=== PATIENT | female | born 1990 | race Hispanic/Latino ===

== ENCOUNTER 2021-01-13 13:40 | Emergency (ER) | payer BC, OTHER ==
[2021-01-13] MEDS ORDERED: SODIUM CHLORIDE 0.9% 1000 ML 1,000 ML IV ONE (13:51)
[2021-01-13] MEDS ORDERED: MORPHINE 2 MG/1 ML INJ IV ONE ×2 (13:51→13:52)
[2021-01-13] MEDS ORDERED: METOCLOPRAMIDE 10 MG/2 ML INJ IV ONE (13:52)
[2021-01-13 15:04] LABS: Basophils % (Auto) 0.5 % (0.0-1.8); Eosinophils % (Auto) 0.3 % (0.0-4.3); Hemoglobin 11.2 gm/dl (10.1-14.3); Lymphocytes # (Auto) 1.7 K/mm3 (1.2-5.4); Lymphocytes % (Auto) 30.4 % (13.4-35.0); Mean Corpuscular HGB Conc 33 % (30-34); Mean Corpuscular Volume 93 fl (79-97); Monocytes # (Auto) 0.5 K/mm3 (0.0-0.8); Monocytes % (Auto) 8.9 % (0.0-7.3); Platelet Count 218 K/mm3 (140-440); Red Blood Count 3.66 M/mm3 (3.65-5.03); Red Cell Distribution Width 13.1 % (13.2-15.2)
[2021-01-13 15:27] LABS: Alanine Aminotransferase 12 units/L (7-56); Albumin 4.4 g/dL (3.9-5); BUN/Creatinine Ratio 28; Blood Urea Nitrogen 14 mg/dL (7-17); Calcium 9.1 mg/dL (8.4-10.2); Hemolysis Index 14
--- NOTE | 2021-01-13 15:30 | Emergency Department Report ---
ED Female HPI - General Chief complaint: Urogenital-Female Stated complaint: SHARP CRAMPS Time Seen by Provider: 01/13/21 13:46 Source: patient Mode of arrival: Ambulatory Limitations: No Limitations - History of Present Illness Initial comments: This is a 31-year-old female nontoxic, well nourished in appearance, no acute signs of distress presents to the ED with c/o of acute on chronic intermittent pelvic pain x months. Patient stated was sent by her OBGYN for Ultrasound and pain control. Patient stated that she takes [place] for pain. Patient denies any vomiting. Patient describes pelvic pain as cramping and aching with level o f 8/10 diffuse. Denies any upper abdominal pains. Patient denies chest pain, short of breath, fever, hemoptysis, blood in stool, chills, headache, stiff neck, numbness or tingling. Patient denies any diarrhea or constipation. Patient denies any vaginal discharge. Denies any vaginal bleeding. Denies any blood in stool. Patient denies any recent travels. Patient stated allergies to codeine, zofran, and nitrofurantoin. MD Complaint: pelvic pain -: days(s) Radiation: non-radiating Severity: mild Severity scale (0 -10): 8 Quality: cramping Consistency: constant Improves with: none Worsens with: none Are you Now?: No Associated Symptoms: denies: vaginal discharge, vaginal bleeding, abdominal pain, nausea/vomiting, fever/chills, headaches, loss of appetite, dysuria, hematuria, rash, seizure, shortness of breath, syncope, weakness - Related Data Home Medications Medication Instructions Recorded Confirmed Last Taken Norgestimate-Ethinyl Estradiol 1 tab PO DAILY 12/12/16 12/14/16 12/12/16 [Sprintec 28 Day Tablet] Phentermine HCl 37.5 mg PO DAILY 12/12/16 12/12/16 12/05/16 Previous Rx's Medication Instructions Recorded Last Taken Type Ibuprofen [Motrin] 800 mg PO Q8HR PRN #40 tablet 12/14/16 Unknown Rx Oxycodone HCl/Acetaminophen 1 each PO Q6HR PRN #50 tablet 12/14/16 Unknown Rx [Percocet 7.5/325 mg] Promethazine [Phenergan TAB] 25 mg PO Q6HR PRN #40 tab 12/14/16 Unknown Rx cephALEXin [Keflex] 500 mg PO Q8HR #21 cap 01/13/21 Unknown Rx Allergies Allergy/AdvReac Type Severity Reaction Status Date / Time codeine Allergy Vomiting Verified 01/13/21 13:43 ondansetron Allergy Vomiting Verified 01/13/21 13:43 [From Zofran (as hydrochloride)] nitrofurantoin AdvReac Hives Verified 01/13/21 13:43 [From Macrobid] ED Review of Systems ROS: Stated complaint: SHARP CRAMPS Other details as noted in HPI Comment: All other systems reviewed and negative Constitutional: denies: chills, fever Eyes: denies: eye pain, eye discharge, vision change ENT: denies: ear pain, throat pain Respiratory: denies: cough, shortness of breath, wheezing Cardiovascular: denies: chest pain, palpitations Endocrine: no symptoms reported Gastrointestinal: denies: abdominal pain, nausea, diarrhea Genitourinary: denies: urgency, dysuria, discharge Musculoskeletal: denies: back pain, joint swelling, arthralgia Skin: denies: rash, lesions Neurological: denies: headache, weakness, paresthesias Psychiatric: denies: anxiety, depression Hematological/Lymphatic: denies: easy bleeding, easy bruising ED Past Medical Hx - Past Medical History Hx Hypertension: No Hx Headaches / Migraines: Yes (migraines) 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) - Social History Smoking Status: Former Smoker - Medications Home Medications: Home Medications Medication Instructions Recorded Confirmed Last Taken Type Norgestimate-Ethinyl Estradiol 1 tab PO DAILY 12/12/16 12/14/16 12/12/16 History [Sprintec 28 Day Tablet] Phentermine HCl 37.5 mg PO DAILY 12/12/16 12/12/16 12/05/16 History Ibuprofen [Motrin] 800 mg PO Q8HR PRN #40 tablet 12/14/16 Unknown Rx Oxycodone HCl/Acetaminophen 1 each PO Q6HR PRN #50 tablet 12/14/16 Unknown Rx [Percocet 7.5/325 mg] Promethazine [Phenergan TAB] 25 mg PO Q6HR PRN #40 tab 12/14/16 Unknown Rx cephALEXin [Keflex] 500 mg PO Q8HR #21 cap 01/13/21 Unknown Rx ED Physical Exam - General Limitations: No Limitations General appearance: alert, in no apparent distress - Head Head exam: Present: atraumatic, normocephalic - Eye Eye exam: Present: normal appearance - Neck Neck exam: Present: normal inspection, full ROM. Absent: lymphadenopathy - Respiratory Respiratory exam: Present: normal lung sounds bilaterally. Absent: respiratory distress, wheezes, rales, rhonchi, stridor, chest wall tenderness, accessory muscle use, decreased breath sounds, prolonged expiratory - Cardiovascular Cardiovascular Exam: Present: regular rate, normal rhythm, tachycardia, normal heart sounds. Absent: irregular rhythm, systolic murmur, diastolic murmur, rubs, gallop - GI/Abdominal GI/Abdominal exam: Present: soft, normal bowel sounds. Absent: distended, tenderness, guarding, rebound, rigid, diminished bowel sounds - Extremities Exam Extremities exam: Present: full ROM - Back Exam Back exam: Present: normal inspection, full ROM. Absent: tenderness, CVA tenderness (R), CVA tenderness (L), muscle spasm, paraspinal tenderness, vertebral tenderness, rash noted - Neurological Exam Neurological exam: Present: alert, oriented X3, normal gait - Psychiatric Psychiatric exam: Present: normal affect, normal mood - Skin Skin exam: Present: warm, dry, intact, normal color. Absent: rash ED Course Vital Signs 01/13/21 01/13/21 13:43 14:16 Temperature 98.1 F Pulse Rate 109 H Respiratory 18 16 Rate Blood Pressure 141/76 O2 Sat by Pulse 100 Oximetry - Reevaluation(s) Reevaluation #1: 01/13/21 15:32 Patient is speaking in full sentences with no signs of distress noted. ED Medical Decision Making - Lab Data Result diagrams: 01/13/21 14:38 01/13/21 14:38 Lab Results 01/13/21 01/13/21 01/13/21 Range/Units 14:38 14:38 14:38 WBC 5.4 (4.5-11.0) K/mm3 RBC 3.66 (3.65-5.03) M/mm3 Hgb 11.2 (10.1-14.3) gm/dl Hct 34.0 (30.3-42.9) % MCV 93 (79-97) fl MCH 31 (28-32) pg MCHC 33 (30-34) % RDW 13.1 L (13.2-15.2) % Plt Count 218 (140-440) K/mm3 Lymph % (Auto) 30.4 (13.4-35.0) % [place] % (Auto) 8.9 H (0.0-7.3) % Eos % (Auto) 0.3 (0.0-4.3) % Baso % (Auto) 0.5 (0.0-1.8) % Lymph # (Auto) 1.7 (1.2-5.4) K/mm3 [place] # (Auto) 0.5 (0.0-0.8) K/mm3 Eos # (Auto) 0.0 (0.0-0.4) K/mm3 Baso # (Auto) 0.0 (0.0-0.1) K/mm3 Seg Neutrophils % 59.9 (40.0-70.0) % Seg Neutrophils # 3.3 (1.8-7.7) K/mm3 Sodium 140 (137-145) mmol/L Potassium 4.0 (3.6-5.0) mmol/L Chloride 105.1 (98-107) mmol/L Carbon Dioxide 21 L (22-30) mmol/L Anion Gap 18 mmol/L BUN 14 (7-17) mg/dL Creatinine 0.5 L (0.6-1.2) mg/dL Estimated GFR > 60 ml/min BUN/Creatinine Ratio 28 % Glucose 81 (65-100) mg/dL Calcium 9.1 (8.4-10.2) mg/dL Total Bilirubin 0.40 (0.1-1.2) mg/dL AST 15 (5-40) units/L ALT 12 (7-56) units/L Alkaline Phosphatase 38 (35-129) units/L Total Protein 6.7 (6.3-8.2) g/dL Albumin 4.4 (3.9-5) g/dL Albumin/Globulin Ratio 1.9 % HCG, Qual Negative (Negative) Urine Color (Yellow) Urine Turbidity (Clear) Urine pH (5.0-7.0) Ur Specific [place] (1.003-1.030) Urine Protein (Negative) mg/dL Urine Glucose (UA) (Negative) mg/dL Urine Ketones (Negative) mg/dL Urine Blood (Negative) Urine Nitrite (Negative) Urine Bilirubin (Negative) Urine Urobilinogen (<2.0) mg/dL Ur Leukocyte Esterase (Negative) Urine WBC (Auto) (0.0-6.0) /HPF Urine RBC (Auto) (0.0-6.0) /HPF U Epithel Cells (Auto) (0-13.0) /HPF Urine Mucus /HPF 01/13/21 Range/Units Unknown WBC (4.5-11.0) K/mm3 RBC (3.65-5.03) M/mm3 Hgb (10.1-14.3) gm/dl Hct (30.3-42.9) % MCV (79-97) fl MCH (28-32) pg MCHC (30-34) % RDW (13.2-15.2) % Plt Count (140-440) K/mm3 Lymph % (Auto) (13.4-35.0) % [place] % (Auto) (0.0-7.3) % Eos % (Auto) (0.0-4.3) % Baso % (Auto) (0.0-1.8) % Lymph # (Auto) (1.2-5.4) K/mm3 [place] # (Auto) (0.0-0.8) K/mm3 Eos # (Auto) (0.0-0.4) K/mm3 Baso # (Auto) (0.0-0.1) K/mm3 Seg Neutrophils % (40.0-70.0) % Seg Neutrophils # (1.8-7.7) K/mm3 Sodium (137-145) mmol/L Potassium (3.6-5.0) mmol/L Chloride (98-107) mmol/L Carbon Dioxide (22-30) mmol/L Anion Gap mmol/L BUN (7-17) mg/dL Creatinine (0.6-1.2) mg/dL Estimated GFR ml/min BUN/Creatinine Ratio % Glucose (65-100) mg/dL Calcium (8.4-10.2) mg/dL Total Bilirubin (0.1-1.2) mg/dL AST (5-40) units/L ALT (7-56) units/L Alkaline Phosphatase (35-129) units/L Total Protein (6.3-8.2) g/dL Albumin (3.9-5) g/dL Albumin/Globulin Ratio % HCG, Qual (Negative) Urine Color Yellow (Yellow) Urine Turbidity Clear (Clear) Urine pH 5.0 (5.0-7.0) Ur Specific [place] 1.027 (1.003-1.030) Urine Protein 30 mg/dl (Negative) mg/dL Urine Glucose (UA) Neg (Negative) mg/dL Urine Ketones Tr (Negative) mg/dL Urine Blood Lg (Negative) Urine Nitrite Neg (Negative) Urine Bilirubin Neg (Negative) Urine Urobilinogen < 2.0 (<2.0) mg/dL Ur Leukocyte Esterase Neg (Negative) Urine WBC (Auto) 8.0 H (0.0-6.0) /HPF Urine RBC (Auto) 3.0 (0.0-6.0) /HPF U Epithel Cells (Auto) 1.0 (0-13.0) /HPF Urine Mucus 3+ /HPF - Radiology Data [facility] [address] [place] [address] Ultrasound Report Signed Patient: AMI CASTILLO MR#: [id number] : 1990 Acct:[id number] Age/Sex: 31 / F ADM Date: 01/13/21 Loc: ED Attending Dr: Ordering Physician: KYLAH ROSALES NP Date of Service: 01/13/21 Procedure(s): US pelvis duplex doppler comp Accession Number(s): [id number] cc: KYLAH ROSALES NP ULTRASOUND PELVIS INDICATION / CLINICAL INFORMATION: pelvic pain. Prior history of endometrial ablation is given TECHNIQUE: Transabdominal and Transvaginal. Duplex Color Doppler used: Yes. COMPARISON: None available FINDINGS: UTERUS: Uterus measures 6.8 cm in length. Endometrial stripe measures 12 mm. No mass lesions are seen. There are multiple cysts in the lower uterine segment measuring up to 11 mm. These may represent nabothian cysts. There is a small amount of fluid in the cervical canal. RIGHT ADNEXA: No significant ovarian cyst or mass. Normal color Doppler blood flow. LEFT ADNEXA: No significant ovarian cyst or mass. Normal color Doppler blood flow. URINARY BLADDER: No significant abnormality. FREE FLUID: None. ADDITIONAL FINDINGS: None. IMPRESSION: 1. The endometrial stripe measures 12 mm. There are cysts in the lower uterine segment near the cervix likely representing nabothian cysts. There is a small amount of fluid in the cervical canal. The ovaries are u nremarkable. No adnexal masses are seen. No free fluid is seen. Signer Name: Cuauhtemoc Dean MD Signed: 01/13/2021 5:36 PM Workstation Name: [id number] Transcribed By: SS Dictated By: Cuauhtemoc Dean MD Electronically Authenticated By: Cuauhtemco Dean MD Signed Date/Time: 01/13/211735 DD/ 32 TD/TT: [facility] [address] [place] [address] Ultrasound Report Signed Patient: AMI CASTILLO MR#: [id number] : 1990 Acct:[id number] Age/Sex: 31 / F ADM Date: 01/13/21 Loc: ED Attending Dr: Ordering Physician: KYLAH ROSALES NP Date of Service: 01/13/21 Procedure(s): US transvaginal Accession Number(s): [id number] cc: KYLAH ROSALES NP ULTRASOUND PELVIS INDICATION / CLINICAL INFORMATION: pelvic pain. Prior history of endometrial ablation is given TECHNIQUE: Transabdominal and Transvaginal. Duplex Color Doppler used: Yes. COMPARISON: None available FINDINGS: UTERUS: Uterus measures 6.8 cm in length. Endometrial stripe measures 12 mm. No mass lesions are seen. There are multiple cysts in the lower uterine segment measuring up to 11 mm. These may represent nabothian cysts. There is a small amount of fluid in the cervical canal. RIGHT ADNEXA: No significant ovarian cyst or mass. Normal color Doppler blood flow. LEFT ADNEXA: No significant ovarian cyst or mass. Normal color Doppler blood flow. URINARY BLADDER: No significant abnormality. FREE FLUID: None. ADDITIONAL FINDINGS: None. IMPRESSION: 1. The endometrial stripe measures 12 mm. There are cysts in the lower uterine segment near the cervix likely representing nabothian cysts. There is a small amount of fluid in the cervical canal. The ovaries are unremarkable. No adnexal masses are seen. No free fluid is seen. Signer Name: Cuauhtemoc Dean MD Signed: 01/13/2021 5:36 PM Workstation Name: [id number] Transcribed By: SS Dictated By: Cuauhtemoc Dean MD Electronically Authenticated By: Cuauhtemoc Dean MD Signed Date/Time: 01/13/211735 DD/ 32 TD/TT: - Medical Decision Making This is a 31-year-old female that presents with pelvic pain. Patient is stable and was examined by me. There is no abdominal tenderness. Negative signs of symptoms of appendicitis. Labs obtained. UA obtained. US TUB PULLER and transvaginal with doppler obtained and dictated by the radiologist. Patient is notified of the report with no questions noted by the patient. Vital signs are stable prior to discharge. Patient received medical treatment in the ED which patient stated symptoms has resovled and subsided. Was instructed note to operate any machinery due to possible drowsiness and stated someone will drive the patient home. A by mouth challenge has been obtained and patient tolerated well with no nausea vomiting. Patient stated does have pain medication that was prescribed by her SECURITY ALARM INSTALLER which I instructed patient to take as her SECURITY ALARM INST[employer]ER prescribed this. Patient was also instructed to Follow-up with a OBGYN doctor in 3-5 days or if symptoms worsen and continue return to emergency room as soon as possible. At time of discharge, the patient does not seem toxic or ill in appearance. No a cute signs of distress noted. Patient agrees to discharge treatment plan of care. No further questions noted by the patient. Critical care attestation.: If time is entered above; I have spent that time in minutes in the direct care of this critically ill patient, excluding procedure time. ED Disposition Clinical Impression: Pelvic pain UTI (urinary tract infection) Qualifiers: Urinary tract infection type: acute cystitis Hematuria presence: without hematuria Qualified Code(s): N30.00 - Acute cystitis without hematuria Disposition: 01 HOME / SELF CARE / HOMELESS Is pt being admited?: No Does the pt Need Aspirin: No Condition: Stable Instructions: Urinary Tract Infection, Adult Additional Instructions: Follow-up with a OBGYN doctor in 3-5 days or if symptoms worsen and continue return to emergency room as soon as possible. Prescriptions: cephALEXin [Keflex] 500 mg PO Q8HR #21 cap Referrals: MEKA MALLOY MD [Primary Care Provider] - 3-5 Days PRIMARY CARE, [Referring] - 3-5 Days [facility] [Provider Group] - 3-5 Days [facility] [Provider Group] - 3-5 Days Forms: Work/School Release Form(ED) Time of Disposition: 18:29
[2021-01-13 16:16] LABS: Bilirubin,Urine NEG (Negative); Blood,Urine LG (Negative); Color,Urine Yellow (Yellow); Mucus,Urine 3+ /HPF; Urobilinogen,Urine < 2.0 mg/dL (<2.0)
[2021-01-13] MEDS ORDERED: diphenhydrAMINE 50 MG/ML VIAL IV ONE (17:18)
--- NOTE | 2021-01-13 17:41 | Ultrasound Report ---
ULTRASOUND PELVIS INDICATION / CLINICAL INFORMATION: pelvic pain. Prior history of endometrial ablation is given TECHNIQUE: Transabdominal and Transvaginal. Duplex Color Doppler used: Yes. COMPARISON: None available FINDINGS: UTERUS: Uterus measures 6.8 cm in length. Endometrial stripe measures 12 mm. No mass lesions are seen . There are multiple cysts in the lower uterine segment measuring up to 11 mm. These may represent na bothian cysts. There is a small amount of fluid in the cervical canal. RIGHT ADNEXA: No significant ovarian cyst or mass. Normal color Doppler blood flow. LEFT ADNEXA: No significant ovarian cyst or mass. Normal color Doppler blood flow. URINARY BLADDER: No significant abnormality. FREE FLUID: None. ADDITIONAL FINDINGS: None. IMPRESSION: 1. The endometrial stripe measures 12 mm. There are cysts in the lower uterine segment near the cervi x likely representing nabothian cysts. There is a small amount of fluid in the cervical canal. The ovaries are unremarkable. No adnexal masses are seen. No free fluid is seen. Signer Name: Cuauhtemoc Dean MD Signed: 01/13/2021 5:36 PM Workstation Name: [id number]
[2021-01-13 18:37] VITALS: BP 112/68
== END 2021-01-13 18:39 | disposition home or self-care (01) ==
LOC: ED 13:40
DX: N39.0 Urinary tract infection, site not specified (principal); R10.2 Pelvic and perineal pain; G43.909 Migraine, unspecified, not intractable, without status migrainosus; Z87.891 Personal history of nicotine dependence; Z79.899 Other long term (current) drug therapy; Z88.5 Allergy status to narcotic agent; Z88.8 Allergy status to other drugs, medicaments and biological substances
CPT/HCPCS: 36415; 76830; 80053; 81001; 84703; 85025; 93975; 96374; 96375; 99284; J1200; J2270; J2765; J7030; Q0162